=== PATIENT | female | born 1975 | race Caucasian/White ===

== ENCOUNTER 2017-11-05 12:11 | Emergency (ER) | payer MEDICAID, OTHER ==
[~2017-11-05] VITALS: Ht 154.9 cm; Wt 63.6 kg
[2017-11-05] MEDS ORDERED: PROPARACAINE HCL 0.5% 15 ML OPHTHALMIC SOLUTION OU ONE (13:00)
[2017-11-05 14:58] VITALS: BP 141/77
== END 2017-11-05 14:59 | disposition home or self-care (01) ==
LOC: EMS 12:12
DX: H57.12 Ocular pain, left eye (principal); H53.142 Visual discomfort, left eye; R03.0 Elevated blood-pressure reading, without diagnosis of hypertension; F17.210 Nicotine dependence, cigarettes, uncomplicated
CPT/HCPCS: 99283

== ENCOUNTER 2017-12-08 17:39 | Emergency (ER) | payer OTHER ==
[~2017-12-08] VITALS: Ht 154.9 cm; Wt 63.6 kg
[2017-12-08] MEDS ORDERED: PROPARACAINE/FLUORESCEIN SOD 0.5-0.25% 0.5 ML OPHTHALMIC SOLUTION OD ONE (19:30)
[2017-12-08 19:36] VITALS: BP 130/66
[2017-12-08] MEDS ORDERED: POLYMYXIN B/TRIMETHOPRIM 10 ML OPHTHALMIC SOLUTION OD ONE (20:00)
== END 2017-12-08 20:30 | disposition home or self-care (01) ==
LOC: EMS 17:40
DX: S05.01XA Injury of conjunctiva and corneal abrasion without foreign body, right eye, initial encounter (principal); R03.0 Elevated blood-pressure reading, without diagnosis of hypertension; F17.210 Nicotine dependence, cigarettes, uncomplicated; W22.8XXA Striking against or struck by other objects, initial encounter; Y93.89 Activity, other specified; Y92.89 Other specified places as the place of occurrence of the external cause; Y99.8 Other external cause status
CPT/HCPCS: 99283; Z7610